=== PATIENT | male | born 1960 | race Caucasian/White ===

== ENCOUNTER 2016-12-24 14:36 | Emergency (ER) | payer SELFPAY ==
[~2016-12-24] VITALS: Ht 190.5 cm; Wt 92.4 kg
[2016-12-24] MEDS ORDERED: NAPROXEN500 MG PO (17:53)
[2016-12-24] MEDS ORDERED: MOTRIN800 MG PO ×2 (17:53→18:03)
[2016-12-24] MEDS ORDERED: VALIUM5 MG PO (18:03)
[2016-12-24] MEDS ORDERED: PREDNISONE20 MG PO (18:03)
[2016-12-24 18:18] VITALS: BP 145/100
== END 2016-12-24 18:20 | disposition home or self-care (01) ==
LOC: EME 14:36
DX: M54.42 Lumbago with sciatica, left side (principal); M54.41 Lumbago with sciatica, right side; Z72.0 Tobacco use
CPT/HCPCS: 99281; 99284; J1885; J3360; J7512

== ENCOUNTER 2017-03-14 16:05 | Emergency (ER) | payer OTHER ==
[~2017-03-14] VITALS: Ht 188 cm; Wt 87.9 kg
[~2017-03-14 16:05] MED LIST: MOTRIN800 MG PO; NAPROXEN500 MG PO; PREDNISONE20 MG PO; VALIUM5 MG PO
[2017-03-14 16:11] VITALS: BP 130/86
[2017-03-14] MEDS ORDERED: MOTRIN800 MG PO (18:02)
[2017-03-14] MEDS ORDERED: VALIUM5 MG PO (18:02)
[2017-03-14] MEDS ORDERED: LIDOCARE1 EACH TP (18:32)
== END 2017-03-14 19:07 | disposition home or self-care (01) ==
LOC: EME 16:05 → EXP 16:05
DX: M54.42 Lumbago with sciatica, left side (principal)
CPT/HCPCS: 72100; 99281; 99283; J1885; J3360